=== PATIENT | female | born 1980 | race Caucasian/White ===

== ENCOUNTER 2020-11-11 05:14 | Emergency (ER) | payer OTHER ==
[~2020-11-11] VITALS: Ht 162.6 cm; Wt 77.1 kg
[2020-11-11] MEDS ORDERED: SERTRALINE HCL100 MG PO (05:32)
[2020-11-11 05:59] LABS: ABSOLUTE LYMPHOCYTES 0.9 thou/uL (0.8-5.3); ABSOLUTE MONOCYTES 0.4 thou/uL (0.0-1.2); ABSOLUTE NEUTROPHILS 4.2 thou/uL (1.6-8.1); BASOPHILS 0.3 %; EOSINOPHILS 0.3 %; HEMATOCRIT 42.2 % (37.0-47.0); HEMOGLOBIN 14.1 gm/dL (12.0-15.0); LYMPHOCYTES 16.7 %; MCH 30.1 pg (26.0-34.0); MCHC 33.3 g/dL (28.0-37.0); MCV 90.3 fL (80.0-100.0); MONOCYTES 7.3 %; MPV 8.4 fl. (7.2-11.1); NUCLEATED RBCS 0 /100WBC; PLATELET COUNT* 159 thou/uL (150-400); POLYS 75.4 %; RBC 4.68 mil/uL (4.20-5.00); RDW-CV 13.5 % (10.5-14.5); WBC 5.6 thou/uL (4.0-11.0)
[2020-11-11 06:14] LABS: CALCIUM 7.7 mg/dL (8.5-10.1); CREATININE 0.6 mg/dL (0.6-1.3); POTASSIUM 3.6 mmol/L (3.5-5.1)
[2020-11-11 06:19] LABS: ALBUMIN 3.4 g/dL (3.4-5.0); TOTAL BILIRUBIN 0.3 mg/dL (<0.1-1.0); TOTAL PROTEIN 6.9 g/dL (6.4-8.2)
[2020-11-11] MEDS ORDERED: ACETAMINOPHEN-1 EAC2 PO (06:46)
[2020-11-11] MEDS ORDERED: MEDROLDOSEPACK PO (06:46)
[2020-11-11] MEDS ORDERED: ZOFRAN ODT4 MG PO (06:46)
[2020-11-11 07:16] LABS: URINE BILIRUBIN NEGATIVE (Negative); URINE BLOOD TRACE (Negative); URINE CLARITY CLEAR; URINE COLOR YELLOW; URINE GLUCOSE-RANDOM NEGATIVE (Negative); URINE KETONES NEGATIVE (Negative); URINE LEUKOCYTES-REFLEX NEGATIVE (Negative); URINE NITRITE-REFLEX NEGATIVE (Negative); URINE PROTEIN NEGATIVE (Negative); URINE SPECIFIC GRAVITY 1.015 (1.005-1.030); URINE UROBILINOGEN 0.2 E.U./dl (0.2-1.0)
[2020-11-11 07:20] VITALS: BP 98/64
== END 2020-11-11 07:20 | disposition home or self-care (01) ==
LOC: M.ERS 05:14
PROVIDERS: Personal Emergency Response Attendant
DX: U07.1 COVID-19 (principal); E86.0 Dehydration; R51.9 Headache, unspecified